=== PATIENT | female | born 1960 | race Asian ===

== ENCOUNTER 2023-05-08 09:34 | Outpatient (CLI) | payer MEDICARE | END 2023-05-08 09:35 | disposition home or self-care (01) | LOC: CSHULT 09:34 | PROVIDERS: ATTEND Internal Medicine | DX: R10.13 Epigastric pain (principal) | CPT/HCPCS: 76700 ==

== ENCOUNTER 2023-09-24 09:52 | Outpatient (CLI) | payer MEDICARE | END 2023-09-24 09:53 | disposition home or self-care (01) | LOC: CSHMAMMO 09:52 | PROVIDERS: ATTEND Internal Medicine | DX: Z12.31 Encounter for screening mammogram for malignant neoplasm of breast (principal) | CPT/HCPCS: 77063; 77067 ==

== ENCOUNTER 2024-09-28 11:47 | Outpatient (CLI) | payer MEDICARE | END 2024-09-28 11:48 | disposition home or self-care (01) | LOC: CSHCP 11:47 | PROVIDERS: ATTEND Internal Medicine | DX: R05.3 Chronic cough (principal) | CPT/HCPCS: 94060; 94664; 94726; 94729; 94760 ==